=== PATIENT | female | born 1985 | race Caucasian/White ===

== ENCOUNTER → 2016-08-10 | Outpatient (CLI) | payer BC ==
[~2016-08-10] MED LIST: MTR600X PO; NUTR-218 PO; OXYC-57 PO; PRENTAB26 PO
== END | disposition home or self-care (01) ==
LOC: C.LAB1850 15:43
PROVIDERS: ATTEND Obstetrics & Gynecology
DX: O09.00 Supervision of pregnancy with history of infertility, unspecified trimester (principal)

== ENCOUNTER 2016-09-14 15:44 | Emergency (ER) | payer BC, OTHER ==
[~2016-09-14] VITALS: Ht 157.5 cm; Wt 57.6 kg
[~2016-09-14 15:44] MED LIST changes: -MTR600X PO; -OXYC-57 PO; -PRENTAB26 PO
[2016-09-14 15:49] VITALS: TEMP 36.8; Ht 157.5 cm; Wt 57.6 kg
[2016-09-14] MEDS ORDERED: SODIUM CHLORIDE 0.9% 1000ML 1,000 ML IV STA (17:36)
[2016-09-14 17:58] VITALS: O2SAT 100
[2016-09-14] MEDS ORDERED: PRENTAB26 PO (18:14)
[2016-09-14 18:15] LABS: BASO % 0.1 %; BASO ABS # 0.01 K/uL (0-0.2); COMPLETE YES; HEMATOCRIT 35.7 % (37-47); IG% 0.2 %; LYMPH % 25.2 %; LYMPH ABS # 2.07 K/uL (1.2-3.4); MEAN CELL VOLUME 81.9 fL (80-100); MEAN CORPUSCULAR HEMOGLOBIN 29.1 pg (25-34); MEAN CORPUSCULAR HGB CONC 35.6 g/dl (32-36); MEAN PLATELET VOLUME 11.2 fL (7.4-10.4); MONO % 6.1 %; NEUT % 67.4 %; PLATELET COUNT 176 K/uL (130-400); RED BLOOD COUNT 4.36 M/uL (4.2-5.4); WHITE BLOOD COUNT 8.22 K/uL (4.8-10.8)
[2016-09-14 18:31] LABS: ALT/SGPT 17 U/L (12-78); AST/SGOT 9 U/L (15-37); BLOOD UREA NITROGEN 9 mg/dl (7-18); BUN/CREATININE RATIO 18.4 (10-20); CALCIUM 8.6 mg/dl (8.5-10.1); CARBON DIOXIDE 23 mmol/L (21-32); CHLORIDE 105 mmol/L (98-107); CREATININE 0.47 mg/dl (0.60-1.20); GLUCOSE 82 mg/dl (70-99); MAGNESIUM 2.2 mg/dl (1.8-2.4); POTASSIUM 3.8 mmol/L (3.5-5.1); SODIUM 138 mmol/L (136-145)
[2016-09-14 18:42] LABS: ALKALINE PHOSPHATASE 41 U/L (45-117); THYROID STIMULATING HORMONE 0.418 uIu/ml (0.300-4.500)
[2016-09-14] MEDS ORDERED: SODIUM CHLORIDE 0.9% 500ML 500 ML IV STA (19:52)
[2016-09-14 20:32] VITALS: BP 94/56; PULSE 66; O2SAT 100
--- NOTE | 2016-09-14 22:35 | EMERGENCY ROOM VISIT NOTE ---
History First contact with patient: 17:20 Chief Complaint: DEHYDRATION Stated Complaint: 9/10 WKS PREG- PVC'S/DEHYDRATION DUE TO VOMITTING Nursing Triage Summary: 10 weeks , cant keep anything down, vomting. Pt feels like heart is beating out of chest, had PVCs with other 2 pregnancies. History of Present Illness The patient is a 30 year old female who presents to the Emergency Room with complaints of nausea, vomiting, fatigue and dizziness. She also reports intermittent palpitations that have worsened over the past several days. The patient did have a history of PVCs with her prior . The patient reports that she is currently 9 weeks and 4 days . OB history is . The patient has had nausea for the past 6 weeks. She did have some minimal nausea on her first , and worse nausea on her second . She did have a prescription for Zofran ODT, but never really needed her medication on her second . The patient has not tried Zofran on her current . She reports that her SUPERINTENDENT CIRCUS is unable to get her in until her 12 week visit. She tried to call her family doctor as well, and had an appointment scheduled for today, but it was canceled. She called her former SUPERINTENDENT CIRCUS, Dr. Alfredo, who recommended that she come to the emergency department for further evaluation and treatment for probable dehydration. The patient has not had any abdominal/pelvic cramping or vaginal bleeding. She has had no chest pain, shortness of breath, sinus congestion or fever. 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 He does report a family history of thyroid disease, but denies any known personal history of the same. He has not had any urinary symptoms or diarrhea. She currently denies any pain. Review of Systems HEENT: Denies visual problems, hearing loss, tinnitus. Denies difficulty swallowing or oral lesions. PULMONARY: Denies cough, shortness of breath, sputum production or hemoptysis. CARDIOVASCULAR: Denies chest pain, palpitations, dyspnea on exertion, orthopnea or peripheral edema. GASTROINTESTINAL: Denies diarrhea, constipation or abdominal pain. GENITOURINARY: Denies dysuria, frequency, urgency or nocturia. NEUROLOGIC: Denies history of epilepsy, CVA, TIA or chronic headaches. MUSCULOSKELETAL: Denies history of joint tenderness/swelling. SKIN: Denies rashes or lesions. PSYCHIATRIC: Denies history of depression or mental illness. ENDOCRINE: Denies history of diabetes or thyroid disorders. Past Medical/Surgical History Medical Problems: (1) History of endometriosis (2) Palpitations Family History Unremarkable Social History Smoking Status: Never Smoker Alcohol Use: none Marital Status: Housing Status: lives with family Occupation Status: employed Current/Historical Medications Scheduled Multivit/Min/Iron/Fol Ac/Pren ( Vitamin), 1 TAB PO DAILY Nutritional Supplements (Juice Plus Fibre), 1 DOSE PO DIRECTED Allergies Coded Allergies: Sulfa Drugs (Verified Allergy, Intermediate, SWELLING, 09/14/16) Physical Exam Vital Signs Date Time Temp Pulse Resp B/P Pulse Ox O2 Delivery O2 Flow Rate FiO2 09/14/16 20:32 66 18 94/56 100 Room Air 09/14/16 18:58 68 16 100/59 100 Room Air 09/14/16 18:22 63 09/14/16 18:00 93 100/61 99 Room Air 111/62 113/70 09/14/16 17:58 100 Room Air 09/14/16 15:49 36.8 79 18 120/76 99 Room Air Physical Exam CONSTITUTIONAL: Healthy and well nourished. Alert and oriented X 3 with positive affect. Patient does not appear acutely ill or toxic. HEENT: Normocephalic, atraumatic. Pupils equal, round and reactive. Ears and nares are clear. No scleral icterus or conjunctival injection/pallor. OROPHARYNX: Mucous membranes are somewhat dry. No posterior pharyngeal erythema or tonsillar exudates. NECK: Full active range of motion without discomfort. No JVD or carotid bruits. RESPIRATORY: Clear to auscultation bilaterally with no wheezing, crackles, rhonchi or stridor. CARDIOVASCULAR: Regular rate and rhythm with no murmurs, rubs or gallops. GASTROINTESTINAL: Bowel sounds present in all quadrants. Abdomen is soft and nontender to palpation. MUSCULOSKELETAL: Full range of motion of all joints without discomfort. INTEGUMENTARY: No rash or other significant dermatologic conditions noted. NEUROLOGIC: No focal neurologic deficits noted. Medical Decision & Procedures Laboratory Results 09/14/16 17:56 Red Blood Count 4.36, Mean Corpuscular Volume 81.9, Mean Corpuscular Hemoglobin 29.1, Mean Corpuscular Hemoglobin Concent 35.6, Mean Platelet Volume 11.2, Neutrophils (%) (Auto) 67.4, Lymphocytes (%) (Auto) 25.2, Monocytes (%) (Auto) 6.1, Eosinophils (%) (Auto) 1.0, Basophils (%) (Auto) 0.1, Neutrophils # (Auto) 5.54, Lymphocytes # (Auto) 2.07, Monocytes # (Auto) 0.50, Eosinophils # (Auto) 0.08, Basophils # (Auto) 0.01 09/14/16 17:56 Test 09/14/16 17:56 White Blood Count 8.22 K/uL (4.8-10.8) Red Blood Count 4.36 M/uL (4.2-5.4) Hemoglobin 12.7 g/dL (12.0-16.0) Hematocrit 35.7 % (37-47) Mean Corpuscular Volume 81.9 fL (80-100) Mean Corpuscular Hemoglobin 29.1 pg (25-34) Mean Corpuscular Hemoglobin Concent 35.6 g/dl (32-36) Platelet Count 176 K/uL (130-400) Mean Platelet Volume 11.2 fL (7.4-10.4) Neutrophils (%) (Auto) 67.4 % Lymphocytes (%) (Auto) 25.2 % Monocytes (%) (Auto) 6.1 % Eosinophils (%) (Auto) 1.0 % Basophils (%) (Auto) 0.1 % Neutrophils # (Auto) 5.54 K/uL (1.4-6.5) Lymphocytes # (Auto) 2.07 K/uL (1.2-3.4) Monocytes # (Auto) 0.50 K/uL (0.11-0.59) Eosinophils # (Auto) 0.08 K/uL (0-0.5) Basophils # (Auto) 0.01 K/uL (0-0.2) RDW Standard Deviation 38.7 fL (36.4-46.3) RDW Coefficient of Variation 13.0 % (11.5-14.5) Immature Granulocyte % (Auto) 0.2 % Immature Granulocyte # (Auto) 0.02 K/uL (0.00-0.02) Anion Gap 10.0 mmol/L (3-11) Est Creatinine Clear Calc Drug Dose 136.0 ml/min Estimated GFR () > 150.0 Estimated GFR (Non- 130.7 BUN/Creatinine Ratio 18.4 (10-20) Calcium Level 8.6 mg/dl (8.5-10.1) Phosphorus Level 3.0 mg/dl (2.5-4.9) Magnesium Level 2.2 mg/dl (1.8-2.4) Total Bilirubin 0.4 mg/dl (0.2-1) Direct Bilirubin 0.1 mg/dl (0-0.2) Aspartate Amino Transf (AST/SGOT) 9 U/L (15-37) Alanine Aminotransferase (ALT/SGPT) 17 U/L (12-78) Alkaline Phosphatase 41 U/L (45-117) Total Protein 7.3 gm/dl (6.4-8.2) Albumin 3.7 gm/dl (3.4-5.0) Thyroid Stimulating Hormone (TSH) 0.418 uIu/ml (0.300-4.500) The above labs were reviewed, and were grossly normal. Medications Administered Medications (Trade) Dose Ordered Sig/Aleksandar Route Start Time Stop Time Status Last Admin Dose Admin Sodium Chloride 1,000 ml @ 999 mls/hr Q1H1M STAT IV 09/14/16 17:36 09/14/16 18:36 DC 09/14/16 18:02 999 MLS/HR Sodium Chloride (Nss 500ml) 500 ml @ 999 mls/hr Q31M STAT IV 09/14/16 19:52 09/14/16 20:22 DC 09/14/16 19:52 999 MLS/HR Procedure 1. IV hydration: The patient received a 1.5 L normal saline bolus ED Course Patient history and physical exam were performed. Nurse's notes were reviewed. Triage vital signs were reviewed and normal with a blood pressure 120/76, and pulse rate of 79. While speaking with the patient, she reports feeling occasional palpitations. Orthostatic vital signs were also performed and were normal. IV access was established, and labs were drawn. Labs were reviewed and were grossly normal. The patient was hydrated with a 1.5 L normal saline. The patient was placed on backend python developer after initial exam. The patient did have occasional unifocal PVCs. The patient refused any parenteral or oral antiemetics. At the completion of workup, the patient did report feeling better without significant nausea. She actually reports feeling hungry. The patient reports that she will follow-up with Dr. Alfredo. She was encouraged to remain hydrated throughout the day. She was also encouraged to take her home Zofran ODT as needed for nausea. She also reported difficulty sleeping. I did explain that Benadryl can also help with nausea and sleeping. She was instructed to return to the emergency department for any persistent palpitations, chest pain, shortness of breath for uncontrollable vomiting. Otherwise, she will follow-up with her SUPERINTENDENT CIRCUS for further management. The patient was happy with plan of care, and voiced understanding of all discharge instructions. Medical Decision Impression Primary Impression: Nausea, vomiting Additional Impressions: Unifocal PVCs Intrauterine Departure Information Referrals Carmine Carlson M.D. (PCP) Patient Instructions My [facility] Health Problem Qualifiers
[2017-04-11] MEDS ORDERED: OXYC-57 PO (07:35)
[2017-04-11] MEDS ORDERED: MTR600X PO (07:35)
== END 2016-09-14 20:47 | disposition home or self-care (01) ==
LOC: C.EDB 15:46 → C.EDA 20:47
DX: O21.0 Mild hyperemesis gravidarum (principal); O99.411 Diseases of the circulatory system complicating pregnancy, first trimester; I49.3 Ventricular premature depolarization; O26.891 Other specified pregnancy related conditions, first trimester; Z3A.09 9 weeks gestation of pregnancy; Z79.899 Other long term (current) drug therapy

== ENCOUNTER → 2016-09-24 | Outpatient (CLI) | payer BC ==
[~2016-09-24] MED LIST changes: +MTR600X PO; +OXYC-57 PO; +PRENTAB26 PO
[2016-09-29 02:27] LABS: CHLAMYDIA TRACH RNA*** NOT DETECTED (NOT DETECTED); GC (NEIS GONORRHOEAE)RNA** NOT DETECTED (NOT DETECTED)
== END | disposition home or self-care (01) ==
LOC: C.LABSPEC 11:50
PROVIDERS: ATTEND Obstetrics & Gynecology
DX: Z34.93 Encounter for supervision of normal pregnancy, unspecified, third trimester (principal)

== ENCOUNTER → 2016-09-29 | Outpatient (CLI) | payer BC ==
[2016-09-29 17:45] LABS: BASO % 0.2 %; BASO ABS # 0.02 K/uL (0-0.2); COMPLETE YES; EOS % 0.9 %; HEMATOCRIT 34.7 % (37-47); IG% 0.3 %; LYMPH % 24.9 %; LYMPH ABS # 2.25 K/uL (1.2-3.4); MEAN CELL VOLUME 81.5 fL (80-100); MEAN CORPUSCULAR HEMOGLOBIN 29.8 pg (25-34); MEAN CORPUSCULAR HGB CONC 36.6 g/dl (32-36); MEAN PLATELET VOLUME 10.7 fL (7.4-10.4); MONO % 4.6 %; NEUT % 69.1 %; PLATELET COUNT 237 K/uL (130-400); RED BLOOD COUNT 4.26 M/uL (4.2-5.4); WHITE BLOOD COUNT 9.05 K/uL (4.8-10.8)
== END | disposition home or self-care (01) ==
LOC: C.LAB1850 16:49
PROVIDERS: ATTEND Obstetrics & Gynecology
DX: Z34.93 Encounter for supervision of normal pregnancy, unspecified, third trimester (principal)

== ENCOUNTER → 2016-10-27 | Outpatient (CLI) | payer BC ==
[2016-10-27 19:21] LABS: GTGD 50 Grams
== END | disposition home or self-care (01) ==
LOC: C.LAB 17:37
PROVIDERS: ATTEND Obstetrics & Gynecology
DX: O09.01 Supervision of pregnancy with history of infertility, first trimester (principal); Z3A.00 Weeks of gestation of pregnancy not specified

== ENCOUNTER → 2017-01-22 | Outpatient (CLI) | payer BC ==
[2017-01-22 14:42] LABS: HEMATOCRIT 36.4 % (37-47)
[2017-01-22 15:05] LABS: GTGD 50 Grams
== END | disposition home or self-care (01) ==
LOC: C.LAB1850 12:47
PROVIDERS: ATTEND Obstetrics & Gynecology
DX: Z34.83 Encounter for supervision of other normal pregnancy, third trimester (principal)

== ENCOUNTER → 2017-01-22 | Outpatient (CLI) | payer BC ==
[2017-01-22 15:08] LABS: URINE APPEARANCE CLEAR (CLEAR); URINE BILIRUBIN NEG (NEG); URINE COLOR YELLOW; URINE NITRITE NEG (NEG); URINE PH 7.5 (4.5-7.5); URINE SPECIFIC GRAVITY 1.011 (1.000-1.030); UROBILINOGEN NEG (NEG)
[2017-01-22 15:16] LABS: MANUAL MICROSCOPIC REQUIRED? NO; REVIEW REQ? NO
== END | disposition home or self-care (01) ==
LOC: C.LABSPEC 13:55
PROVIDERS: ATTEND Obstetrics & Gynecology
DX: Z34.83 Encounter for supervision of other normal pregnancy, third trimester (principal)

== ENCOUNTER → 2017-03-26 | Outpatient (CLI) | payer BC | END | disposition home or self-care (01) | LOC: C.LABSPEC 08:39 | PROVIDERS: ATTEND Obstetrics & Gynecology | DX: Z34.83 Encounter for supervision of other normal pregnancy, third trimester (principal) ==

== ENCOUNTER 2017-04-08 05:37 | Inpatient (IN) | payer BC ==
--- NOTE | 2017-04-01 12:13 | PAT Medication Instructions ---
Service Date Apr 01, 2017. Current Home Medication List Multivit/Min/Iron/Fol Ac/Pren ( Vitamin), 1 TAB PO DAILY Nutritional Supplements (Juice Plus Fibre), 1 DOSE PO DIRECTED Medication Instructions For Your Scheduled Surgery - Hold the following medications the morning of surgery: Multivit/Min/Iron/Fol Ac/Pren ( Vitamin), 1 TAB PO DAILY Nutritional Supplements (Juice Plus Fibre), 1 DOSE PO DIRECTED - Take the following medications as scheduled the night before surgery: Nutritional Supplements (Juice Plus Fibre), 1 DOSE PO DIRECTED *NOTHING TO EAT OR DRINK AFTER MIDNIGHT* If you have any questions please call us at [phone] or [phone] or [phone]
[2017-04-01 13:01] LABS: BASO % 0.2 %; BASO ABS # 0.02 K/uL (0-0.2); COMPLETE YES; EOS % 0.6 %; HEMATOCRIT 33.9 % (37-47); IG% 1.9 %; LARGE PLATELETS 2+; LYMPH % 20.1 %; LYMPH ABS # 1.77 K/uL (1.2-3.4); MEAN CELL VOLUME 85.6 fL (80-100); MEAN CORPUSCULAR HEMOGLOBIN 29.8 pg (25-34); MEAN CORPUSCULAR HGB CONC 34.8 g/dl (32-36); MONO % 6.3 %; NEUT % 70.9 %; PLATELET COUNT 116 K/uL (130-400); PLT ESTIMATE NORMAL; RED BLOOD COUNT 3.96 M/uL (4.2-5.4); WHITE BLOOD COUNT 8.79 K/uL (4.8-10.8)
--- NOTE | 2017-04-01 14:27 | HISTORY & PHYSICAL EXAMINATION ---
DATE OF ADMISSION: 04/08/2017 ADMITTING DIAGNOSES: 1. Term . 2. Previous section x2. ADMISSION HISTORY: The patient is a 31-year-old 3, para 2 with an EDC of April 15 by dates and first trimester ultrasound, who is admitted at 39 weeks gestational age for a repeat section. The patient has had 2 previous sections and as such has been scheduled for this procedure. The patient has had a benign course. Laboratory values show a blood type of O negative, antibody negative. She received RhoGAM on the 22 of January. She is hepatitis B negative, rubella immune. She had a normal 1-hour Glucola x2 and a negative third trimester beta strep culture. PAST MEDICAL HISTORY: OBSTETRICAL: section x2. GYNECOLOGICAL: Endometriosis with diagnostic laparoscopy for endometrioma. MEDICAL: PVCs. SURGICAL: Skin graft, roof of the mouth. ALLERGIES: SULFA. SOCIAL HISTORY: No smoking. FAMILY HISTORY: Noncontributory. REVIEW OF SYSTEMS: As per HPI. ADMISSION PHYSICAL EXAMINATION: GENERAL: Shows a gravid female in no acute distress. VITAL SIGNS: Blood pressure 120/74 and a weight of 158 pounds. HEENT EXAMINATION: Unremarkable. NECK: Supple. LUNGS: Clear. HEART: With a regular rhythm and rate. ABDOMEN: Gravid, vertex, positive heart tones, estimated weight of 7-1/2 pounds. PELVIC: Deferred. EXTREMITIES: Exam shows no deep calf tenderness. NEUROLOGIC: Grossly intact. IMPRESSION: A 31-year-old 3, para 2 at 39 weeks gestational age for repeat section. PLAN: The risks, benefits and alternatives to the surgery have been discussed. While the benefits will be delivery of the infant, the risks are bleeding, infection, inadvertent injury to bowel or bladder, readmission or reoperation. The patient understands the above. Permit has been signed and she wishes to proceed.
[~2017-04-08] VITALS: Ht 154.9 cm; Wt 69.0 kg
[2017-04-08] VITALS (11 sets, daily range): BP systolic 90–98; BP diastolic 51–63; PULSE 72–77; TEMP 36.3–37.2; O2SAT 96–99; Ht 154.9 cm; Wt 69.0 kg
[~2017-04-08 05:37] MED LIST changes: -MTR600X PO; -OXYC-57 PO
[2017-04-08] MEDS ORDERED: CEFAZOLIN IV 2,000 MG in DEXTROSE 5% 50ML IV SCH (06:00)
[2017-04-08] MEDS ORDERED: CITRIC ACID/SODIUM CITRATE 15 ML UDC PO SCH (06:00)
[2017-04-08] MEDS: LACTATED RINGER'S 1000ML 1,000 ML IV SCH ×2 (06:11→07:11)
[2017-04-08] MEDS ORDERED: EpHEDrine SULFATE INJ 50 MG/ML AMP ONE (06:15)
[2017-04-08] MEDS ORDERED: PHENYLEPHRINE HCL INJ 10 MG/ML VIAL ONE (06:15)
[2017-04-08] MEDS ORDERED: OXYTOCIN INJ 10 UNITS/ML VIAL ONE (06:15)
[2017-04-08] MEDS ORDERED: SODIUM CHLORIDE 0.9% INJ 10 ML VIAL ONE (06:18)
[2017-04-08 06:24] LABS: BASO % 0.2 %; BASO ABS # 0.02 K/uL (0-0.2); EOS % 0.3 %; HEMATOCRIT 35.4 % (37-47); IG% 1.4 %; LYMPH % 26.5 %; LYMPH ABS # 2.53 K/uL (1.2-3.4); MEAN CELL VOLUME 85.9 fL (80-100); MEAN CORPUSCULAR HEMOGLOBIN 27.7 pg (25-34); MEAN PLATELET VOLUME 11.6 fL (7.4-10.4); MONO % 7.3 %; NEUT % 64.3 %; PLATELET COUNT 125 K/uL (130-400); RED BLOOD COUNT 4.12 M/uL (4.2-5.4); WHITE BLOOD COUNT 9.55 K/uL (4.8-10.8)
[2017-04-08 06:39] LABS: COMPLETE YES; MEAN CORPUSCULAR HGB CONC 32.2 g/dl (32-36)
[2017-04-08] MEDS ORDERED: MoRPHine SULFATE PF 1 MG/ML 10 ML AMP/VIAL ONE (06:43)
[2017-04-08] MEDS ORDERED: FENTANYL CITRATE INJ 50 MCG/1 ML 2 ML VIAL ONE (06:43)
[2017-04-08] MEDS ORDERED: DiphenhydrAMINE HCL 50 MG/ML VIAL IV PRN ×2 (07:00→08:45)
[2017-04-08] MEDS ORDERED: KETOROLAC TROMETHAMINE 30 MG/ML VIAL IV. PRN (07:00)
[2017-04-08] MEDS ORDERED: EpHEDrine SULFATE INJ 50 MG/ML AMP IV PRN ×2 (07:00→08:45)
[2017-04-08] MEDS ORDERED: PROMETHAZINE HCL INJ 12.5 MG in SODIUM CHLORIDE 0.9% 50ML 50 ML IV PRN ×2 (07:00→08:45)
[2017-04-08] MEDS ORDERED: ATROPINE SULFATE 0.1 MG/ML 5ML SYR IV PRN (07:00)
[2017-04-08] MEDS ORDERED: DEXAMETHASONE SOD INJ 4 MG/ML VIAL IV PRN (07:00)
[2017-04-08] MEDS ORDERED: ONDANSETRON INJ 2 MG/ML 2 ML VIAL IV PRN ×2 (07:00→08:45)
[2017-04-08] MEDS ORDERED: ACETAMINOPHEN 1000 MG/100 ML IV IV ONE (07:00)
--- NOTE | 2017-04-08 07:12 | History & Physical Bridge Note ---
H&P Re-Evaluation Bridge Note: I have examined the patient, reviewed the History & Physical and in the interval since the performance of the History & Physical I have noted the following changes of clinical significance: No changes noted
[2017-04-08] MEDS ORDERED: ONDANSETRON INJ 2 MG/ML 2 ML VIAL ONE (08:14)
[2017-04-08] MEDS ORDERED: SUPERCREAM 0.870 % 15GM JAR EXT PRN (08:30)
[2017-04-08] MEDS ORDERED: LANOLIN OINT EXT PRN ×2 (08:30)
[2017-04-08] MEDS ORDERED: DIPHTHERIA/TETANUS/PERTUSSIS 0.5 ML SYR/VIAL IM. ONE (08:30)
[2017-04-08] MEDS ORDERED: HYDROCORTISONE ACETATE 25 MG SUPP PR PRN (08:30)
[2017-04-08] MEDS ORDERED: BENZOCAINE 20% AER SPR 82.5 GM CAN EXT PRN (08:30)
[2017-04-08] MEDS ORDERED: LACTATED RINGER'S 1000ML 500 ML IV PRN (08:40)
[2017-04-08] MEDS ORDERED: NALOXONE HCL INJ 0.08 MG in SYRINGE 1.8 ML IV PRN (08:40)
[2017-04-08] MEDS ORDERED: SODIUM CHLORIDE 0.9% 1000ML 1,000 ML IV PRN (08:40)
[2017-04-08] MEDS ORDERED: NALOXONE HCL INJ 1 MG in SODIUM CHLORIDE 0.9% 1000ML 1,000 ML IV PRN ×4 (08:40)
--- NOTE | 2017-04-08 08:40 | [facility] Post Operative Brief Note ---
Immediate Operative Summary Operative Date Apr 08, 2017. (Yu Sheppard M.D.) Pre-Operative Diagnosis 1. Term . 2. Previous cesarian sections x2. 3. Pt desires repeat . (Yu Sheppard M.D.) 1 ) Term Prenancy 2) Previous C/S X2 (Ramirez Egan M.D.) Post-Operative Diagnosis Same as pre-op. (Yu Sheppard M.D.) same (Ramirez Egan M.D.) Procedure(s) Performed Live male at 0751 (Yu Sheppard M.D.) 1) Repeat LCT C/S 2) lysis of adhesions (Ramirez Egan M.D.) Surgeon Dr. Egan (Yu Sheppard M.D.) Jignesh (Ramirez Egan M.D.) Wire Spring Relay Adjuster Surgeon(s) Dr. Donohue (Yu Sheppard M.D.) Charanjit (Ramirez Egan M.D.) Estimated Blood Loss 600 ML (Yu Sheppard M.D.) 600 (Ramirez Egan M.D.) Findings Viable male . Apgars 9/9. Weight 8#2. Normal appearing uterus, tubes, ovaries. Small omental adhesions to posterior uterus. (Yu Sheppard M.D.) Viavle male infant, Apgars 8/9, art/venous gasses pending; normal adnexa, adhesions of omentum to posterior uterus lysed (Ramirez Egan M.D.) Fluids (cc crystalloids) 1200 (Ramirez Egan M.D.) Specimens Placenta (Exam) Cord Blood Cord Gases (Yu Sheppard M.D.) 1) Placenta (Ramirez Egan M.D.) Drains zaragoza, clear yellow (Yu Sheppard M.D.) Zaragoza to gravity (Ramirez Egan M.D.) Anesthesia spinal (Yu Sheppard M.D.) Spinal (Ramirez Egan M.D.) Complication(s) None (Yu Sheppard M.D.) None (Ramirez Egan M.D.) Disposition L&D (Yu Sheppard M.D.) L&D (Ramirez Egan M.D.) Resident Tracking Resident Involvement: Resident Care Provided Care Provided: OB Delivery (Yu Sheppard M.D.)
[2017-04-08] MEDS ORDERED: MoRPHine SULFATE 2 MG/ML CARP IV PRN (08:45)
[2017-04-08] MEDS ORDERED: DC INTRASPINAL MORPHINE SCH (08:45)
[2017-04-08] MEDS ORDERED: NALOXONE HCL 0.4 MG/1 ML VIAL/CARP IV PRN (08:45)
[2017-04-08] MEDS ORDERED: MoRPHine SULFATE PF 1 MG/ML 10 ML AMP/VIAL EPI PRN (08:45)
[2017-04-08] MEDS ORDERED: METOCLOPRAMIDE HCL INJ 20 MG in SODIUM CHLORIDE 0.9% 50ML 50 ML IV PRN (08:45)
[2017-04-08] MEDS ORDERED: NALBUPHINE HCL INJ 10 MG/ML AMP IV PRN (08:45)
[2017-04-08] MEDS ORDERED: NO NARCOTICS OR SEDATIVES SCH (08:45)
[2017-04-08] MEDS ORDERED: MEPERIDINE HCL 25 MG/ML CARP IV PRN (08:45)
[2017-04-08] MEDS: OXYTOCIN INJ 20 UNITS in LACTATED RINGER'S 1000ML 1,000 ML IV SCH ×2 (08:46→17:22)
--- NOTE | 2017-04-08 09:49 | OPERATIVE REPORT ---
DATE OF OPERATION: 04/08/2017 PREOPERATIVE DIAGNOSES: 1. Term . 2. Previous section x2. POSTOPERATIVE DIAGNOSES: 1. Same. 2. Pelvic adhesions. PROCEDURES PERFORMED: 1. Repeat low cervical transverse section. 2. Lysis of adhesions. SURGEON: Dr. Egan. SENIOR COLDFUSION DEVELOPER: Dr. Donohue. ANESTHESIA: Spinal. FINDINGS: Viable male with Apgars of 8 and 9. Arterial and venous cord gases pending. Grossly normal adnexa bilaterally. Adhesions of the omentum to the posterior surface of the uterus which were lysed. PROCEDURE IN DETAIL: The patient was taken to the operating room and after spinal anesthesia was placed in the supine position and draped and prepped in the usual fashion. Pfannenstiel type incision through previous surgical scar was made. Underlying subcutaneous tissue was dissected down to the ventral abdominal fascia, which was nicked and opened in a horizontal manner. Preperitoneal fascia was dissected away until the peritoneal cavity was entered and opened in a vertical manner. Bladder blade was placed. The peritoneum overlying the uterus was elevated, opened in a semi-lunar fashion, the inferior margin of which was taken down creating the bladder flap. The lower uterine segment was noted to be thin with transparency. The uterus was entered sharply and extended in a semi-lunar fashion manually. Viable male was delivered. Cord was clamped and cut and the baby was passed off to pediatrics who was in attendance for the delivery. Cord gases, cord blood samples obtained. Placenta delivered spontaneously and the uterus was exteriorized. The uterine cavity was wiped clean of any residual blood tissue and/or clot. The uterine incision was closed with 2 layers of 4-0 Vicryl, the first a running locking stitch, the second an imbricating stitch. Inspection of the uterus showed adhesions of the omentum to the posterior surface of the uterus. There was a window in the omentum and as such the adhesion was taken down with cautery. Hemostasis was present. Inspection of the uterine incision was again dry and the uterus was returned to the pelvic cavity. Pericolic gutters were cleared bilaterally of any blood tissue and/or clot. The pelvis was thoroughly irrigated with 1000 mL of warm saline. The incision was inspected for hemostasis again which was present. Sponge and needle count was correct. The rectus muscle was then plicated in the midline with a running 2-0 Vicryl stitch. The fascia was closed laterally with a running 0 Vicryl suture. Subcutaneous tissue was irrigated with warm saline and the skin incision was closed with a 4-0 Monocryl subcuticular suture. Sterile dressing was applied and the patient was taken to the recovery room in satisfactory condition. I attest to the content of the Intraoperative Record and any orders documented therein. Any exception s are noted below.
--- NOTE | 2017-04-08 10:57 | Anesthesiology Progress Note ---
Anesthesia Post Op Note Date & Time Apr 08, 2017 at 10:56 Notes Mental Status: alert / awake / arousable, participated in evaluation Pt Amnestic to Procedure: Yes Nausea / Vomiting: adequately controlled Pain: adequately controlled Airway Patency, RR, SpO2: stable & adequate BP & HR: stable & adequate Hydration State: stable & adequate Neuraxial Anesthesia: was administered, sensory block is resolving Anesthetic Complications: no major complications apparent
[2017-04-08] MEDS: KETOROLAC TROMETHAMINE 30 MG/ML VIAL IV. PRN ×2 (11:07→20:33)
[2017-04-09] VITALS (9 sets, daily range): BP systolic 84–93; BP diastolic 52–58; PULSE 67–86; TEMP 36.4–36.9; O2SAT 98–99
[2017-04-09] MEDS: OXYTOCIN INJ 20 UNITS in LACTATED RINGER'S 1000ML 1,000 ML IV SCH (01:03)
[2017-04-09] MEDS ORDERED: DiphenhydrAMINE HCL 50 MG/ML VIAL IV PRN (01:30)
[2017-04-09] MEDS ORDERED: KETOROLAC TROMETHAMINE 30 MG/ML VIAL IV. PRN (01:30)
[2017-04-09] MEDS ORDERED: ONDANSETRON INJ 2 MG/ML 2 ML VIAL IV PRN (01:30)
[2017-04-09] MEDS ORDERED: OXYCODONE/ACETAMINOPHEN 5-325 TAB PO PRN (01:30)
[2017-04-09 06:11] LABS: BASO % 0.1 %; BASO ABS # 0.01 K/uL (0-0.2); EOS % 0.7 %; HEMATOCRIT 27.4 % (37-47); IG% 0.6 %; LYMPH ABS # 1.19 K/uL (1.2-3.4); MEAN CELL VOLUME 85.9 fL (80-100); MEAN CORPUSCULAR HEMOGLOBIN 27.9 pg (25-34); MEAN CORPUSCULAR HGB CONC 32.5 g/dl (32-36); MEAN PLATELET VOLUME 11.9 fL (7.4-10.4); MONO % 8.7 %; NEUT % 78.9 %; PLATELET COUNT 107 K/uL (130-400); RED BLOOD COUNT 3.19 M/uL (4.2-5.4); WHITE BLOOD COUNT 10.77 K/uL (4.8-10.8)
--- NOTE | 2017-04-09 07:40 | OB/GYN Progress Note ---
INFORMATICS MANAGER Progress Note Date of Service Apr 09, 2017. Subjective conversation w/ patient, physical exam, chart review, lab review Ambulation: limited ambulation Voiding: voiding difficulty (pt zaragoza removed at 0430. Will follow for urination) Passing Gas: Yes Diet Tolerance: Regular Diet Lochia: Moderate Feeding Type: Breast Feeding Pain: controlled Review of Systems Respiratory: No shortness of breath Cardiac: No chest pain Abdomen: No nausea, No vomiting Objective Vital Signs Date Time Temp Pulse Resp B/P (MAP) Pulse Ox O2 Delivery O2 Flow Rate FiO2 04/09/17 05:00 36.9 81 18 85/52 (63) Room Air 04/09/17 02:00 18 98 04/09/17 01:00 20 99 04/09/17 00:30 99 Room Air 04/09/17 00:30 36.4 80 20 93/56 (68) 98 Room Air 04/09/17 00:00 20 99 04/08/17 23:00 20 99 04/08/17 22:00 18 99 04/08/17 21:00 18 99 04/08/17 20:30 37.2 77 20 90/54 (66) 97 Room Air 04/08/17 20:00 18 98 04/08/17 19:00 20 97 04/08/17 18:00 18 99 04/08/17 17:00 18 98 04/08/17 16:00 16 97 04/08/17 15:00 18 98 04/08/17 15:00 98 Room Air 04/08/17 15:00 36.3 73 16 98/63 (75) 98 Room Air 73 04/08/17 14:00 Room Air 04/08/17 14:00 20 96 04/08/17 14:00 96 Room Air 04/08/17 14:00 36.7 72 20 95/51 (66) 96 Room Air Physical Exam General Appearance: WELL-APPEARING, WD/WN, NO APPARENT DISTRESS Respiratory/Chest: lungs clear, no respiratory distress Cardiovascular: regular rate, rhythm, no JVD Abdomen: normal bowel sounds, soft Fundus: Firm, Tender (appropriately tender uterus), Relation to Umbilicus (1 below U) Incision Description: Clean, Dry & Intact Extremities: non-tender, no calf tenderness Laboratory Results Last 24 Hours Test 04/09/17 05:46 White Blood Count 10.77 K/uL Red Blood Count 3.19 M/uL Hemoglobin 8.9 g/dL Hematocrit 27.4 % Mean Corpuscular Volume 85.9 fL Mean Corpuscular Hemoglobin 27.9 pg Mean Corpuscular Hemoglobin Concent 32.5 g/dl Platelet Count 107 K/uL Mean Platelet Volume 11.9 fL Neutrophils (%) (Auto) 78.9 % Lymphocytes (%) (Auto) 11.0 % Monocytes (%) (Auto) 8.7 % Eosinophils (%) (Auto) 0.7 % Basophils (%) (Auto) 0.1 % Neutrophils # (Auto) 8.48 K/uL Lymphocytes # (Auto) 1.19 K/uL Monocytes # (Auto) 0.94 K/uL Eosinophils # (Auto) 0.08 K/uL Basophils # (Auto) 0.01 K/uL RDW Standard Deviation 44.0 fL RDW Coefficient of Variation 13.9 % Immature Granulocyte % (Auto) 0.6 % Immature Granulocyte # (Auto) 0.07 K/uL Assessment and Plan Post-Op Day Number: 1 Continue Routine Care: - Vital Signs reviewed and WNL except for BP: today 0500 85/52. Pt's baseline is 90s/50s. Will follow for clinical signs of hypotension. - Hemoglobin Reviewed. 8.9 today. - Blood Type: O-, GBS-, Rubella Immune. AntiD profile ordered. - Pt is doing well clinically. - Encourage Ambulation, Monitor and Control pain with Motrin PRN, Resume regular diet, Monitor Lochia - Encourage Breast Feeding. SUZY SHEPPARD PGY1 FMR Resident Physician Supervision Note: I interviewed and examined the patient. Discussed with Dr. Sheppard and agree with findings and plan as documented in the note. Any exceptions or clarifications are listed here: Routine PPD1 care. Documented By: Adriane Collins Resident Tracking Resident Involvement: Resident Care Provided Care Provided: OB Delivery
[2017-04-09 08:16] LABS: COMPLETE YES
[2017-04-09] MEDS: PRENATAL VITAMIN TAB PO SCH (08:25)
[2017-04-09] MEDS: FERROUS SULFATE 325 MG TAB PO SCH (08:25)
[2017-04-09] MEDS: OXYCODONE/ACETAMINOPHEN 5-325 TAB PO PRN ×4 (08:30→21:56)
[2017-04-09] MEDS: IBUPROFEN 600 MG TAB PO PRN ×3 (12:28→21:56)
[2017-04-09] MEDS: MAGNESIUM HYDROXIDE SUSP 30 ML UDC PO SCH (21:51)
[2017-04-09] MEDS: SENNA 8.6 MG TAB PO SCH (21:51)
[2017-04-10] MEDS: OXYCODONE/ACETAMINOPHEN 5-325 TAB PO PRN ×5 (03:33→23:10)
[2017-04-10] MEDS: IBUPROFEN 600 MG TAB PO PRN ×5 (03:33→23:09)
[2017-04-10 06:35] LABS: HEMATOCRIT 28.6 % (37-47)
--- NOTE | 2017-04-10 06:37 | OB/GYN Progress Note ---
ARCHITECTURE TECHNICIAN Progress Note Date of Service Apr 10, 2017. Subjective conversation w/ patient, physical exam, chart review, lab review Ambulation: ambulating normally Voiding: no voiding problems Passing Gas: Yes Diet Tolerance: Regular Diet Lochia: Moderate Feeding Type: Breast Feeding Pain: controlled Review of Systems Respiratory: No shortness of breath Cardiac: No chest pain Abdomen: No nausea, No vomiting Female : No dysuria Objective Vital Signs Date Time Temp Pulse Resp B/P (MAP) Pulse Ox O2 Delivery O2 Flow Rate FiO2 04/09/17 23:35 Room Air 04/09/17 23:35 36.8 82 16 90/58 (69) 98 Room Air 04/09/17 15:35 Room Air 04/09/17 15:35 36.7 81 18 90/58 (69) Room Air 04/09/17 11:55 36.7 86 18 87/56 (66) Room Air 04/09/17 08:30 Room Air 04/09/17 08:00 36.6 67 18 84/54 (64) Room Air Physical Exam General Appearance: WELL-APPEARING, WD/WN, NO APPARENT DISTRESS Respiratory/Chest: lungs clear, no respiratory distress Cardiovascular: regular rate, rhythm Abdomen: normal bowel sounds, soft, + distended (appropriately distended. ) Fundus: Firm, Tender (appropriately tender uterus), Relation to Umbilicus (1 below U) Incision Description: Clean, Dry & Intact Extremities: no calf tenderness Laboratory Results Last 24 Hours Test 04/10/17 06:19 Assessment and Plan Post-Op Day Number: 2 Continue Routine Care: - Vital Signs reviewed and WNL - Hemoglobin pending - Blood Type: O-, GBS-, Rubella Immune. - Baby is B+. Rhogam given. - Pt is doing well clinically. - Encourage Ambulation, Monitor and Control pain with Motrin PRN, Resume regular diet, Monitor Lochia - Encourage Breast Feeding. - Routine post op day 2 care. - Ordered colace and mylicon to assist with gas and constipation. SUZY CLARK PGY1 FMR Resident Tracking Resident Involvement: Resident Care Provided Care Provided: OB Delivery
--- NOTE | 2017-04-10 07:05 | Discharge Instructions ---
Discharge Instructions Date of Service Apr 10, 2017. Admission Reason for Admission: Previous Section Discharge Discharge Diagnosis / Problem: Delivery Discharge Goals Goal(s): Routine recovery after Medications Continue Dispensed Medications: supercream, dermaplast, tucks, lansinoh Activity Recommendations Activity Limitations: per Instructions/Follow-up section . Instructions / Follow-Up Instructions / Follow-Up ACTIVITY RECOMMENDATIONS: * Gradual return to full activity over the next 2-3 weeks. * No lifting - nothing heavier than baby over the next 2-3 weeks. * Do not engage in vigorous exercise, sexual activity or sports until cleared by your physician. * Do not drive or operate any motorized equipment until cleared by your physician. * You may shower/bathe daily. MEDICATIONS: For discomfort or pain, you may use Acetaminophen (Tylenol), Ibuprofen (Advil), or Naproxen (Aleve) following the package directions. For constipation you may use Colace following the package directions. BREAST CARE: If you are not breast feeding: * Wear a supportive bra 24 hours a day for one to two weeks. * Avoid stimulating your breasts and nipples as much as possible during the first few weeks after delivery. * When taking a shower, have the warm water hit your back, not breasts. * When your breasts feel full, apply ice packs. Usually three to four times a day helps ease the discomfort. * Take a mild pain medication (Tylenol / Motrin) when you are uncomfortable. If breast feeding: * Use breast milk to lubricate nipples. Lansinoh cream may be used for sore nipples. You do not need to remove cream prior to breast feeding. If using a different brand of cream, check the label for directions regarding removal of cream prior to nursing. * Wear a supportive bra. * If having problems with breasts or breast feeding, call a digital media sales consultant or your health care provider. SPECIAL CARE INSTRUCTIONS: When you are discharged from the hospital, it is important for you to follow the instructions listed below: * During the first week at home, you should be able to care for yourself and your baby. In addition, the usual light household activities are encouraged. * Limit your activities to the way you feel. Do not try to clean the house or move furniture. Be sensible. * If you actively engage in sports and have done so up until the time of your delivery, you may resume these activities as soon as you feel able. This may take up to one month or even longer. Use good judgment. * Continue to take your vitamins for at least six weeks after the of your baby. * Your diet need not be limited unless you were on a special diet before your delivery. Breast-feeding mothers need around 2500 calories per day and at least 64-80 ounces of fluid per day (8 to 10 glasses). * You should eat foods from the four major food groups. Crash diets or fad diets are to be avoided. Eating lean meats, fresh fruits and vegetables, low-fat dairy products, high fiber foods and a regular exercise program, will help you get back to your pre- weight without putting your health at risk. * Constipation is sometimes a problem after delivery. Take a mild laxative as needed. If breast feeding, Milk of Magnesia is acceptable to use. You may use a suppository or Fleets enema. * A daily shower or tub bath is suggested. Wash incision daily with warm soapy water and pat dry. It doesn't need to be covered unless drainage is present. * A bloody vaginal discharge will usually continue until around four weeks . A small amount of bleeding may continue for as long as six weeks. Vaginal discharge changes from the bright red bleeding after delivery to pink then brownish and finally yellowish-pink before becoming white and disappearing. * Bleeding may increase with activity. Your first period may come in 4-8 weeks. If you are breast feeding, your period may be delayed even longer. * [place] (sex) can begin whenever both you and your partner feel comfortable and do not have any form of genital infection. It is recommended that you wait at least six weeks for internal and external healing to occur. If you have questions, please talk to your health care practitioner. A condom should be used to prevent infection and . * Foreplay, gentle intercourse and lubrication is very important the first several times to prevent pain. A water-based lubricant such as K-Y jelly or Astroglide may be used. * If you have RH negative blood and your baby is RH positive, you will receive RHOGAM by injection prior to discharge. The nurse will give you a card to keep with you that has the date and place that you received RHOGAM after delivery. * During your care, you had a Rubella screen done to check for the presence of rubella antibodies in your blood. If your test was negative, you will receive a Rubella vaccine prior to discharge. This vaccine may cause a fever, soreness at the injection site and flu-like symptoms. If these symptoms persist, notify your health care practitioner. is not advised for one month after a Rubella vaccine. * Verbalizes understanding of car seat law as reviewed with patient nursing. * Car Seat hand-out given and reviewed with patient by nursing. * Shaken baby information reviewed with patient by nursing. Call you doctor if: * Heavy bleeding (saturating several pads an hour) or passing clots the size of your fist. * A fever >101 degrees F (38.3 degrees C) on two occasions four hours apart and /or chills. * Unusual pain in the pelvic or vaginal areas. * Call the doctor for any increased redness, drainage or swelling around the incision and any pain unrelieved by prescribed pain medication. * "Baby Blues" lasting longer than two weeks. If you have any questions or concerns, call your health care practitioner at . FOLLOW UP VISIT: * Please call the office at to schedule a 6 week examination. It is important you keep this appointment. It is important for you to make arrangements for either yearly or twice yearly check-ups thereafter. Current Hospital Diet Patient's current hospital diet: Regular OB Diet Discharge Diet Recommended Diet: Regular Diet Procedures Procedures Performed: 1) Repeat LCT C/S 2) lysis of adhesions Pending Studies Studies pending at discharge: no Medical Emergencies . Who to Call and When: Medical Emergencies: If at any time you feel your situation is an emergency, please call [phone] immediately. . Non-Emergent Contact Non-Emergency issues call your: Primary Care Provider . . "Provider Documentation" section prepared by Yu Sheppard. . VTE Core Measure Inpt VTE Proph given/why not?: SCD's Resident Tracking Resident Involvement: Resident Care Provided Care Provided: OB Delivery
[2017-04-10] MEDS: DOCUSATE SODIUM 100 MG CAP PO SCH ×2 (08:05→19:46)
[2017-04-10] MEDS: FERROUS SULFATE 325 MG TAB PO SCH (08:05)
[2017-04-10] MEDS: PRENATAL VITAMIN TAB PO SCH (08:05)
[2017-04-10] MEDS: SIMETHICONE 80 MG CHEW PO PRN ×3 (08:05→19:46)
[2017-04-10 08:20] VITALS: BP 85/54; PULSE 72; TEMP 36.6; O2SAT 98
[2017-04-10 16:30] VITALS: BP 98/65; PULSE 81; TEMP 36.6; O2SAT 98
[2017-04-10] MEDS: SENNA 8.6 MG TAB PO SCH (19:46)
[2017-04-10] MEDS: MAGNESIUM HYDROXIDE SUSP 30 ML UDC PO SCH (19:50)
[2017-04-10 22:50] VITALS: BP 101/69; PULSE 77; TEMP 37; O2SAT 98
[2017-04-11] MEDS: OXYCODONE/ACETAMINOPHEN 5-325 TAB PO PRN ×3 (03:23→12:34)
[2017-04-11] MEDS: IBUPROFEN 600 MG TAB PO PRN ×3 (03:24→12:34)
[2017-04-11 07:30] VITALS: BP 91/59; PULSE 57; TEMP 36.6
--- NOTE | 2017-04-11 07:34 | Progress Note ---
Subjective Apr 11, 2017. Subjective conversation w/ patient, physical exam Ambulation: ambulating normally Voiding: no voiding problems Feeding Type: Breast Feeding Objective Vital Signs Date Time Temp Pulse Resp B/P (MAP) Pulse Ox O2 Delivery O2 Flow Rate FiO2 04/10/17 22:50 37.0 77 16 101/69 (80) 98 Room Air 04/10/17 22:50 Room Air 04/10/17 16:30 98 Room Air 04/10/17 16:30 36.6 81 16 98/65 (76) 98 Room Air 04/10/17 08:20 36.6 72 18 85/54 (64) 98 Room Air 04/10/17 08:20 98 Room Air Physical Exam General Appearance: WELL-APPEARING, NO APPARENT DISTRESS Respiratory/Chest: lungs clear Cardiovascular: regular rate, rhythm Incision Description: Clean, Dry & Intact Extremities: no calf tenderness Assessment and Plan Problem List Medical Problems: (1) Abdominal pain, left lower quadrant Status: Acute (2) Dehydration Status: Acute (3) Nausea and vomiting Status: Acute (4) Unifocal PVCs Status: Acute Post-Op Day#: 3 Continue Routine Care: - doing well - desires d/c - instructions/Rx given - f/u om 2 weeks for incision check
[2017-04-11] MEDS ORDERED: MTR600X PO (07:35)
[2017-04-11] MEDS ORDERED: OXYC-57 PO (07:35)
[2017-04-11] MEDS: SIMETHICONE 80 MG CHEW PO PRN (07:41)
[2017-04-11] MEDS: FERROUS SULFATE 325 MG TAB PO SCH (07:41)
[2017-04-11] MEDS: PRENATAL VITAMIN TAB PO SCH (07:41)
[2017-04-11] MEDS: DOCUSATE SODIUM 100 MG CAP PO SCH (08:00)
[2017-04-11 11:19] VITALS: BP_DIAS 59; PULSE 57; TEMP 36.6
--- NOTE | 2017-04-11 23:26 | DISCHARGE SUMMARY ---
NARRATIVE DISCHARGE SUMMARY ADMITTING DIAGNOSES: 1. Term . 2. Previous section x2. DISCHARGE DIAGNOSES: Same. PROCEDURES PERFORMED: Repeat low cervical transverse section. DISCHARGE MEDICATIONS: 1. Percocet 5/325 1-2 p.o. q. 4-6 hours p.r.n. pain. 2. Motrin 600 mg p.o. q. 6 hours p.r.n. pain. ADMISSION HISTORY: The patient is a 31-year-old 3, para 2 with an EDC of 15 April by dates and first trimester ultrasound who is admitted at 39 weeks gestational age for repeat section. The patient had 2 previous sections and as such been scheduled for this procedure. The patient has had a benign course. Laboratory values show a blood type of O negative, antibody negative. She received RhoGAM on the 22 of January. She is hepatitis B negative, rubella immune. She had a normal 1 hour Glucola x2 and a negative third trimester beta strep culture. PHYSICAL EXAMINATION: GENERAL: Admission physical shows a gravid female in no acute distress. VITAL SIGNS: Blood pressure 120/74, weight of 158 pounds. HEENT: Unremarkable. NECK: Supple. LUNGS: Clear. HEART: With a regular rhythm and rate. ABDOMEN: Gravid, vertex, positive heart tones, estimated weight of 7.5 pounds. PELVIC: Deferred. EXTREMITIES: Showed no deep calf tenderness. NEUROLOGIC: Grossly intact. ADMISSION LABORATORY VALUES: Showed an H&H of 11.4 and 34.9. HOSPITAL COURSE: On day of admission, patient was taken to the operating room where she underwent the above-listed procedures. Operative findings showed a viable male infant with Apgars of 8 and 9. Normal appearing adnexa bilaterally. Adhesions of the omentum to the posterior surface of the uterus were lysed. Postoperatively, the patient did well. Mcgregor catheter was removed on the first postoperative day. H&H came back at 8.9 and 27.4. By the 3rd postoperative day, the patient was ambulating without difficulty and tolerating a regular diet. She was discharged home with the routine discharge instructions and the prescriptions for the medications as listed as above. She will follow up in the office in 2 weeks' time for a postoperative check but as always she has been instructed to call with any questions, problems or difficulties.
== END 2017-04-11 13:10 | disposition home or self-care (01) | DRG 766 ==
LOC: C.LD 05:37 → EDSTATUS 07:30 → C.OBG 14:22
PROVIDERS: ADMIT Obstetrics & Gynecology; ATTEND Obstetrics & Gynecology
PROC: 10D00Z1 Extraction of Products of Conception, Low, Open Approach (ICD-10-PCS; principal; 2017-04-08 07:30)
DX: O34.211 Maternal care for low transverse scar from previous cesarean delivery (principal); O99.89 Other specified diseases and conditions complicating pregnancy, childbirth and the puerperium; N73.6 Female pelvic peritoneal adhesions (postinfective); Z3A.39 39 weeks gestation of pregnancy; Z37.0 Single live birth

== ENCOUNTER → 2017-05-20 | Outpatient (CLI) | payer BC ==
[~2017-05-20] MED LIST changes: +MTR600X PO; +OXYC-57 PO
--- NOTE | 2017-05-20 08:22 | DIAGNOSTIC IMAGING REPORT ---
(CHEST) THORAX WITHOUT CLINICAL HISTORY: R91.1 Solitary pulmonary nodule COMPARISON STUDY: 10/24/2015 , 10/12/2014 CT DOSE: 188.77 mGy.cm TECHNIQUE: CT of the thorax was performed from the thoracic inlet to the lung bases. Images are reviewed in the axial, sagittal, and coronal planes. IV contrast was not administered for this examination. A dose lowering technique was utilized adhering to the principles of ALARA. FINDINGS: Thyroid: Imaged portions of the thyroid gland are normal in appearance. Thoracic aorta: The thoracic aorta is normal in course and caliber, noting standard 3 vessel arch anatomy. Heart: The heart is normal in size and configuration, without pericardial effusion. Lungs and pleural spaces: There is no focal pulmonary consolidation. There are no pleural effusions. There is a stable 3 mm right middle lobe perifissural nodule of doubtful clinical significance. There is a stable 4 mm solid left lower lobe pulmonary nodule as visualized in image #[id number]. There is a stable solid 3 mm left upper lobe pulmonary nodule as visualized in image #[id number]. Mediastinum: There is no mediastinal lymphadenopathy. Blanca: Clear. Axilla: Clear. Upper abdomen: Partially visualized upper abdominal viscera is within normal limits. Skeletal structures: There are no lytic or blastic osseous lesions. IMPRESSION: 1. No acute intrathoracic findings 2. Stable solid subcentimeter pulmonary nodules. Given the age of the patient and the 2+ years of stability, no further follow-up is indicated. Electronically signed by: Jack Kumari M.D. 05/20/2017 8:20 AM Dictated Date/Time: 05/20/2017 8:13 AM
== END | disposition home or self-care (01) ==
LOC: C.CTS 08:02
PROVIDERS: ATTEND Internal Medicine Pulmonary Disease
DX: R91.8 Other nonspecific abnormal finding of lung field (principal)

== ENCOUNTER 2021-08-22 06:54 | Inpatient (IN) ==
--- NOTE | 2021-08-14 16:48 | Anesthesiology Consultation ---
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 Wears mask at work and in public. 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 No known Covid infection in the past 90 days. Patient is fully vaccinated for Covid. No known Covid positive exposures or Covid related symptoms. Preop Covid testing scheduled 08/20/21= will await results Seen by Medicine 04/21/21= seen regarding determining time of delivery. F ourth for patient. 2017 operative reports reviewed, which described the lower uterine segment at "thin with transparency" but does not describe a uterine defect. Discussed the integrity of the lower uterine segment and the potential for uterine window or uterine rupture with this . From the documents available, it does not seem that she is at a particularly high risk for uterine rupture aside from the inherent risk posed by fourth .Recommend incorporating a measurement of anterior L US segment thickness of 36-week scan. If <2 mm, would advise delivery earlier than 39 weeks. If >3.65 mm, this would provide additional reassurance that the risk of uterine rupture is low and delivery at 39 weeks is reasonable. Measurements in between do not help either wayrecommend discussion regarding any factors that going to timing of delivery, only some which are medical, others including social and physiological factors. Usual surveillance for maternal status, she is at increased risk of preeclampsia and other maternal morbidities) and wellbeing is appropriate, including late NSTs Patient seen by cardiology 03/19/2021 = patient presents for palpitations. Usually occurs during pregnancies. Diagnosed in 2013 with symptomatic PVCs. Based on symptomshad PVCs primarily when . Palpitations much less than in the past. Will order 24-hour monitor. DOEmay be a lot of reasons for which this could include heats, , masking. Will get ECHO. Will review patient's testing but follow up appt not needed. History Surgery Operation Date: 08/22/21 10:10 Proposed Procedures p Section in LD - Alba Omalley MD, FACOG Height/Weight Height: 5 ft 1 in Weight: 76.204 kg Allergies Allergy/AdvReac Type Severity Reaction Status Date / Time Sulfa (Sulfonamide Allergy Intermediate SWELLING Verified 08/14/21 15:03 Antibiotics) Medications Home Medications Medication Instructions Recorded Confirmed Last Taken ondansetron HCl 4 mg tablet 4 mg PO Q8H PRN #10 tab 02/28/21 08/14/21 Unknown (Zofran) nutritional supplement-fiber 1 ea PO QAM 03/19/21 08/14/21 Unknown [Juice Plus] prenat.vits,elliott,rrt-qpex-dpxgh 1 tab PO QAM 03/19/21 08/14/21 Unknown aspirin 81 mg tablet,delayed 81 mg PO QAM 08/14/21 08/14/21 Unknown release Past Medical History Medical History Coccygeal pain, acute Hemorrhoids Palpitations HX PVC'S-HAS OCCURED DURING EACH PREGANCY Past Family History Family History Grandfather (Paternal) Lung disease Grandmother (Paternal) Breast cancer Lung disease nodules Mother Thyroid disease Father Dyslipidemia Denies family history of Colon cancer Ovarian cancer Prostate cancer Myocardial infarction Past Surgical History Surgical History History of appendectomy History of delivery X 3 History of ovarian cystectomy Social History Smoking Status: Never smoker Do You Dip or Chew Tobacco: No Hx Alcohol Use: Yes Alcohol type: wine alcohol intake frequency: holidays/special occasions only Hx Substance Use: No Testing Electrocardiogram Date: 03/19/21 SR at 66bpm. Normal EKG per confirming provider Echocardiogram Date: 04/01/21 EF: 60-65% LV Function: normal RWMA: + none Other Findings: no diastolic dysfunction Valvular Disease: + no significant valvular disease Mildly dilated inferior vena cava. Other Testing Holter monitor 03/19/21= Rhythm is sinus rhythm. Average heart rate is 70 bpm. Minimal HR 50 bpm. Max HR 120 bpm. No significant pauses or AV block noted. Isolated APD's and couplets noted. No complex atrial arrhythmia. Isolated VPD's noted. No complex ventricular arrhythmia.
--- NOTE | 2021-08-21 22:08 | History & Physical Report ---
Date of Service August 21, 2021 Assessment & Plan (1) Previous delivery affecting : Plan: IUP at 38 weeks for repeat C/S being performed at earlier than 38 weeks because of prior uterine window at last C?S done at 39 weeks. She is also requesting bi lateral tubal ligation because of unwanted fertility and multiparity. The procedures and their risks were reviewed with the patient at length and all of her questions were answered to her satisfaction. History of Present Illness Primary Care Provider: Carmine Carlson MD Patient is a 35 yo white female EDC 09/05/21 who presents for repeat C/S at 38 weeks. Her first section was done for central placenta previa followed by repeat sections with her last 2 pregnancies. At her last section , the lower uterine segment had a transparent asymptomatic window. This section was performed at 39 weeks. This section is being done at 38 weeks because of the concern that uterine rupture could occur if continued through 39 weeks. uterine thickness measured at 34 weeks appeared to be adequate. Prior surgeries were also complicated by pelvic adhesions particularly in the posterior cul-de-sac. She would like to proceed with bilateral tubal ligation if this is possible. The was otherwise complicated by ahistory of stage 4 endometriosis and advanced maternal age. Allergies Allergy/AdvReac Type Severity Reaction Status Date / Time Sulfa (Sulfonamide Allergy Intermediate SWELLING Verified 08/21/21 14:50 Antibiotics) Home Medications Medication Instructions Recorded Confirmed Type ondansetron HCl 4 mg tablet 4 mg PO Q8H PRN #10 tab 02/28/21 08/21/21 Rx (Zofran) nutritional supplement-fiber 1 ea PO QAM 03/19/21 08/21/21 History [Juice Plus] prenat.vits,elliott,oik-gcsi-dppmw 1 tab PO QAM 03/19/21 08/21/21 History aspirin 81 mg tablet,delayed 81 mg PO QAM 08/14/21 08/21/21 History release Patient History Medical History Coccygeal pain, acute Hemorrhoids Palpitations HX PVC'S-HAS OCCURED DURING EACH PREGANCY Surgical History History of appendectomy History of delivery X 3 History of ovarian cystectomy Family History Grandfather (Paternal) Lung disease Grandmother (Paternal) Breast cancer Lung disease nodules Mother Thyroid disease Father Dyslipidemia Denies family history of Colon cancer Ovarian cancer Prostate cancer Myocardial infarction Social History (Updated 08/14/21 @ 15:23 by Joanna Mehta, DAREK) Smoking Status: Never smoker Second Hand Exposure: Yes (FATHER SMOKED); Hx Alcohol Use: Yes Alcohol type: wine Hx Substance Use: No Preferred Language: Mauritanian Communication Ability: Effective Hearing Ability: Normal Superintendent Meters Required: No Beliefs That Will Affect Care: None marital status: marital status details: Mateo Casarez (39) [phone] Current Living Situation: Spouse and Family Current Living Situation Comment: Lives at home with SPOUSE, 3 KIDS and 1 dog current occupational status: employed current occupation: [employer] Feels Safe at Home: Yes Childhood Exposure to Second-Hand Smoke: Yes Dental Care, Regularly: Yes Physical Activity Frequency: 5-6 Times per Week Seatbelt Use: always Assistive Devices: Contacts and Glasses Review of Systems as per HPI Physical Exam Constitutional: WD/WN, vitals as above Respiratory: normal respiratory effort, lungs clear to auscultation Cardiovascular: RRR, no murmur, no edema Psychiatric: A+Ox3, euthymic affect Genitourinary: OB Exam Abdomen: + fundal height (37), + vertex and + irregular contractions OB Exam Monitor Tracing: + external FHT monitor used, + external uterine monitor used, + category I and + normal FHT variability Coding Level of Care Code None Diagnoses Previous delivery affecting O34.219
[2021-08-22] MEDS ORDERED: LACTATED RINGER'S 1,000 ML IV SCH ×2 (07:30→12:00)
[2021-08-22] MEDS ORDERED: CITRIC ACID/SODIUM CITRATE 15 ML UDC PO SCH (07:30)
[2021-08-22] MEDS ORDERED: ceFAZolin 2000MG 2,000 MG/15 ML SYR IV SCH (08:00)
[2021-08-22] MEDS ORDERED: fentaNYL citrate 100 MCG/2 ML VIAL ONE (08:24)
[2021-08-22] MEDS ORDERED: MoRPHine SULFATE PF 1 MG/ML 10 ML AMP/VIAL ONE (08:24)
[2021-08-22 08:54] LABS: Basophils # (auto) 0.02 K/uL (0-0.2); Basophils % (auto) 0.2 %; Eosinophils # (auto) 0.05 K/uL (0-0.5); Eosinophils % (auto) 0.5 %; Hematocrit (blood only) 34.1 % (37-47); Hemoglobin 11.1 g/dL (12.0-16.0); Immature Granulocytes # (auto) 0.27 K/uL (0.00-0.02); Immature Granulocytes % (auto) 2.6 %; Lymphocytes # (auto) 1.87 K/uL (1.2-3.4); Lymphocytes % (auto) 18.3 %; Mean Corpuscular Hemoglobin 28.6 pg (25-34); Mean Corpuscular Volume 87.9 fL (80-100); Monocytes # (auto) 0.78 K/uL (0.11-0.59); Monocytes % (auto) 7.6 %; Neutrophils # (auto) 7.22 K/uL (1.4-6.5); Neutrophils % (auto) 70.8 %; Platelet Count 134 K/uL (130-400); RDW Coefficient of Variation 15.1 % (11.5-14.5); RDW Standard Deviation 48.4 fL (36.4-46.3); Red Blood Count 3.88 M/uL (4.2-5.4); White Blood Count 10.21 K/uL (4.8-10.8)
[2021-08-22 09:17] LABS: Mean Corpuscular Hgb Conc 32.6 g/dL (32-36)
--- NOTE | 2021-08-22 09:25 | History & Physical Bridge Note ---
Date of Service August 22, 2021 History & Physical Bridge Note I have examined the patient, reviewed the History & Physical and in the interval since the performance of the History & Physical I have noted the following changes of clinical significance: no changes noted
[2021-08-22] MEDS ORDERED: ONDANSETRON INJ 2 MG/ML 2 ML VIAL IV PRN ×2 (10:31→11:57)
[2021-08-22] MEDS ORDERED: NALBUPHINE HCL INJ 10 MG/ML AMP IV PRN (10:31)
[2021-08-22] MEDS ORDERED: ePHEDrine sulfate 50 MG/ML AMP IV PRN (10:31)
[2021-08-22] MEDS ORDERED: diphenhydrAMINE 50 MG/ML VIAL IV PRN (10:31)
[2021-08-22] MEDS ORDERED: MoRPHine SULFATE PF 1 MG/ML 10 ML AMP/VIAL INT SPINAL ONE (10:31)
[2021-08-22] MEDS ORDERED: MoRPHine SULFATE 2 MG/ML CARP IV PRN (10:31)
[2021-08-22] MEDS ORDERED: NALOXONE HCL 1 MG in SODIUM CHLORIDE 0.9% 1000ML 1,000 ML IV PRN (10:31)
[2021-08-22] MEDS ORDERED: NALOXONE HCL 0.4 MG/1 ML VIAL/CARP IV PRN (10:31)
[2021-08-22] MEDS ORDERED: NALOXONE HCL 0.08 MG in SYRINGE 1.8 ML IV PRN (10:31)
[2021-08-22] MEDS ORDERED: PROMETHAZINE HCL 6.25 MG in SODIUM CHLORIDE 0.9% 50 ML IV PRN (10:31)
[2021-08-22] MEDS ORDERED: LACTATED RINGER'S 500 ML IV PRN (10:31)
[2021-08-22] MEDS ORDERED: PHENYLEPHRINE 100MCG/ML 5ML SYR ONE (10:41)
[2021-08-22] MEDS ORDERED: ONDANSETRON INJ 2 MG/ML 2 ML VIAL ONE (10:41)
[2021-08-22] MEDS ORDERED: OXYTOCIN 10 UNITS/ML 10ML VIAL ONE (10:41)
[2021-08-22] MEDS ORDERED: SODIUM CHLORIDE 0.9% 1000ML 1,000 ML IV SCH (10:45)
[2021-08-22] MEDS ORDERED: DC INTRASPINAL MORPHINE SCH (10:45)
[2021-08-22] MEDS ORDERED: NO NARCOTICS OR SEDATIVES SCH (10:45)
--- NOTE | 2021-08-22 11:37 | Post Operative Brief Note ---
PG Immediate Post Op with CF Date of Surgery August 22, 2021 Pre & Post Diagnosis Operation Date: 08/22/21 08:50 Pre-Op Diagnosis: Prior section x3. Unwanted fertility. Post-Op Diagnosis: Same as above. I identified the patient and participated in the time-out.: Yes Procedure Operation Date: 08/22/21 08:50 Actual Procedures p Section in LD delivery of live female child in OR 3(Bilateral) - Alba Omalley MD, FACOG bilateral tubal ligation Surgeon Alba Omalley MD, FACOG Acute Specialist uziel Samuel DO Estimated Blood Loss 450 Findings Consistent with Post-Op Diagnosis Specimens Specimen Description: A: placenta B: cord blood C: partial of right and left fallopian tubes Drains Mcgregor Catheter (placed after spinal,drainging clear yellow urine) Complications none Disposition Accompanied Patient To Recovery: Yes
[2021-08-22] MEDS ORDERED: KETOROLAC 30 MG/ML VIAL IV PRN (11:57)
[2021-08-22] MEDS ORDERED: SENNA 8.6 MG TAB PO PRN (11:57)
[2021-08-22] MEDS ORDERED: HYDROCORTISONE ACETATE 25 MG SUPP PR PRN (11:57)
[2021-08-22] MEDS ORDERED: DIPHTHERIA/TETANUS/PERTUSSIS 0.5 ML SYR/VIAL IM ONE (11:57)
[2021-08-22] MEDS ORDERED: SUPERCREAM 0.870% 15 GM JAR EXT PRN (11:57)
[2021-08-22] MEDS ORDERED: BENZOCAINE 20% AER SPR 82.5 GM CAN EXT PRN (11:57)
--- NOTE | 2021-08-22 12:10 | Operative Report ---
PG Post Operative Report Pre & Post Diagnosis Operation Date: 08/22/21 08:50 Pre-Op Diagnosis: Prior section x3. Unwanted fertility. Post-Op Diagnosis: Same as above. I identified the patient and participated in the time-out.: Yes Procedure Operation Date: 08/22/21 08:50 Actual Procedures p Section in LD delivery of live female child in OR 3(Bilateral) - Alba Omalley MD, FACOG bilateral modified teddy tubal ligation Surgeon Alba Omalley MD, FACOG Head Mixer Jayla Samuel DO Estimated Blood Loss 450 Findings Consistent with Post-Op Diagnosis The uterus was gravid and consistent with a term and size the lower uterine segment appeared to be thin but intact. Bilateral ovaries are also normal as were the fallopian tubes. The colon was densely adherent to the posterior wall of the uterus in the cul-de-sac. There were also filmy adhesions around the left fallopian tube and ovary. Specimens placenta Drains Mcgregor catheter to straight drainage. clear urine at end of the case. Anesthesia Type Spinal Complications none Disposition Accompanied Patient To Recovery: Yes Indications Patient is a 35-year-old 4 para 3-0-0-3 white female EDC of 09/05/2021 presents at 38 weeks for repeat section. She has had 3 prior sections, at her last section the lower uterine wall was a very thin at 39 weeks. Therefore we are performing the repeat section this time at 38 weeks. She is also requesting permanent sterilization for unwanted fertility and multiparity. Description of Procedure After the patient received adequate subarachnoid block she was prepped and draped in usual sterile fashion.A low transverse skin incision was made with a skin area scalpel and carried to the fascia with the same scalpel. The fascial incision was then extended with Nava scissors and the underlying rectus muscle was bluntly sharply dissected off of the overlying fascia. The anchors were then grasped with Estiven clamps and the underlying rectus muscles bluntly sharply dissected off of the overlying fascia. The rectus muscles were adherent on the midline and these were entered with a hemostat creating a plane to separate them bluntly. The underlying peritoneum was then entered bluntly. The bladder blade was then placed in the abdominal cavity and the lower uterine segment was noted to be thin but intact. The bladder was then taken down off the anterior surface of the uterus and placed behind the bladder blade. The lower uterine segment was entered with a scalpel and extended transversely. The amniotic fluid was clear. The infant was delivered with assistance of the vacuum and moderate fundal pressure to the uterine incision. The rest of the delivered easily. She was vigorous upon delivery. The cord was then clamped and cut and the was handed off to Dr. Froylan Anne who was in attendance as passenger service representative. The placenta was then expressed intact with a three-vessel cord. The uterine cavity was explored and found to be free of any placental tissue or membranes. The uterus was exteriorized and covered with a clean lap sponge. The lower uterine segment was closed in a running locking fashion with 0 Monocryl in a single layer. Attention was then turned to the tubal ligation. The left fallopian tube was identified followed to its fimbriated end. Some filmy adhesions adhering the tube to the ovary were lysed with the Bovie. The midportion of the tube was grasped with a Riva clamp. A knuckle of tube was developed with a tie of 3 plain catgut followed by suture ligature of the same. The knuckle of tube was then removed with Metzenbaum scissors and the remaining edges were cauterized with the Bovie. The right fallopian tube was then identified and followed to its fimbriated end it was grasped in the midportion with a Riva clamp. A knuckle of tube was developed with a tie of 3-0 plain catgut followed by suture ligature of the same the necklace tube was then removed. The remaining ends of the tube were cauterized with the Bovie. After suctioning the posterior cul-de-sac for small amount of fluid, the uterus was gently placed back inside the uterine cavity. The gutters were explored bluntly free of any clot or fluid. The tubal ligation sites were then visualized and sent and continued to have excellent hemostasis. After irrigating the anterior cul-de-sac the rectus muscles were brought together in the midline with a individual stitches of 0 Monocryl. Fascia was then closed in a running fashion with 0 Vicryl. The skin edges edges were reapproximated with a subcuticular stitch of 4-0 Vicryl. Mother and were doing well after delivery. I attest to the content of the Intraoperative Record and any orders documented therein. Any exceptions are noted below. OB Procedure Charges 85084 [id number] Add on Tubal for C/S
--- NOTE | 2021-08-22 12:54 | Anesthesiology Progress Note ---
Date of Service August 22, 2021 Anesthesia Post Procedure Vital Signs Vital Signs: Temp Pulse Resp BP Pulse Ox 08/22/21 12:52 65 92/50 L 08/22/21 12:51 67 98 08/22/21 12:46 72 98 08/22/21 12:42 67 97/55 L 08/22/21 12:41 70 98 08/22/21 12:36 74 98 08/22/21 12:35 20 08/22/21 12:32 67 102/58 L 08/22/21 12:31 69 98 08/22/21 12:26 64 98 08/22/21 12:25 20 08/22/21 12:22 60 92/54 L 08/22/21 12:21 71 99 08/22/21 12:16 76 98 08/22/21 12:15 20 08/22/21 12:12 73 128/51 L 08/22/21 12:11 72 99 08/22/21 12:06 81 98 08/22/21 12:05 20 08/22/21 12:01 77 99 08/22/21 11:56 65 98 08/22/21 11:55 20 08/22/21 11:51 72 97 08/22/21 11:50 70 93 08/22/21 11:46 67 97 08/22/21 11:45 36.8 C 66 20 104/53 L 08/22/21 07:11 97 H 106/69 08/22/21 07:09 36.7 C 20 Transfer of Care Handoff Completed per policy Notes Mental Status: alert / awake / arousable and participated in evaluation Patient Amnestic to Procedure: No Nausea / Vomiting: adequately controlled Pain: adequately controlled Airway Patency, RR, SpO2: stable & adequate BP & HR: stable & adequate Hydration State: stable & adequate Neuraxial Anesthesia: was administered and sensory block is resolving Anesthetic Complications: no major complications apparent and Pt Satisfied with anesthetic care
[2021-08-22] MEDS: KETOROLAC 30 MG/ML VIAL IV PRN ×2 (15:45→21:26)
[2021-08-22] MEDS: OXYTOCIN 20 UNITS in LACTATED RINGER'S 1,000 ML IV SCH (16:27)
[2021-08-22] MEDS ORDERED: LACTATED RINGER'S 500 ML IV ONE (16:54)
--- NOTE | 2021-08-22 16:54 | Obstetrical Progress Note ---
Date of Service August 22, 2021 Assessment & Plan Admission and Anticipated Discharge Date Admission Date: August 22, 2021 Subjective Called to room by RN to evaluate patient d/t red in zaragoza tubing. Patient is awake, sitting up, talking. Zaragoza has just been emptied - per RN, the prior 2 zaragoza emptys during her shift were clear with adequate urine output. Now, in preparation to transfer her to unit, she was noted to have a bit of pink-tinged urine in the tubing. No obvious red blood, however RN reported that they saw one drop of red blood move down the tubing to color the urine. Urine in bag, small amount, appears either blood-tinged or concentrated. Will plan to give patient 500cc bolus, will plan to continue to reevaluate urine in the zaragoza bag as she continues to recover. Results & Data ([facility]) Vital Signs (Past 12 Hours) Vital Signs Temp Pulse Resp BP Pulse Ox 08/22/21 16:42 69 100 08/22/21 16:37 73 100 08/22/21 16:31 74 98 08/22/21 16:26 68 99 08/22/21 16:24 64 91/54 L 08/22/21 16:21 73 99 08/22/21 16:16 71 99 08/22/21 16:11 72 98 08/22/21 16:06 72 99 08/22/21 16:01 66 99 08/22/21 15:56 70 98 08/22/21 15:55 69 96/66 L 08/22/21 15:51 71 100 08/22/21 15:46 73 100 08/22/21 15:41 71 100 08/22/21 15:36 68 100 08/22/21 15:31 72 100 08/22/21 15:26 72 100 08/22/21 15:24 69 91/54 L 08/22/21 15:21 71 100 08/22/21 15:16 71 99 08/22/21 15:11 73 100 08/22/21 15:06 70 99 08/22/21 15:01 75 90/53 L 100 08/22/21 14:56 71 99 08/22/21 14:51 64 100 08/22/21 14:46 65 100 08/22/21 14:41 71 100 08/22/21 14:36 65 100 08/22/21 14:33 73 87/54 L 08/22/21 14:31 70 100 08/22/21 14:28 84 92 08/22/21 14:26 75 100 08/22/21 14:25 83 86/52 L 08/22/21 14:21 73 100 08/22/21 14:16 67 100 08/22/21 14:11 70 99 08/22/21 14:06 75 99 08/22/21 14:01 75 99 08/22/21 13:56 70 99 08/22/21 13:53 67 90/51 L 08/22/21 13:51 91 H 94 08/22/21 13:46 66 99 08/22/21 13:45 36.6 C 20 08/22/21 13:42 63 96/54 L 08/22/21 13:41 66 99 08/22/21 13:36 68 99 08/22/21 13:32 69 92/54 L 08/22/21 13:31 69 99 08/22/21 13:26 72 98 08/22/21 13:22 68 95/56 L 08/22/21 13:21 69 97 08/22/21 13:16 68 98 08/22/21 13:15 20 08/22/21 13:12 66 94/52 L 08/22/21 13:11 67 98 08/22/21 13:06 67 98 08/22/21 13:02 70 91/50 L 08/22/21 13:01 68 98 08/22/21 12:56 81 97 08/22/21 12:52 65 92/50 L 08/22/21 12:51 67 98 08/22/21 12:46 72 98 08/22/21 12:45 20 08/22/21 12:42 67 97/55 L 08/22/21 12:41 70 98 08/22/21 12:36 74 98 08/22/21 12:35 20 08/22/21 12:32 67 102/58 L 08/22/21 12:31 69 98 08/22/21 12:26 64 98 08/22/21 12:25 20 08/22/21 12:22 60 92/54 L 08/22/21 12:21 71 99 08/22/21 12:16 76 98 08/22/21 12:15 20 08/22/21 12:12 73 128/51 L 08/22/21 12:11 72 99 08/22/21 12:06 81 98 08/22/21 12:05 20 08/22/21 12:01 77 99 08/22/21 11:56 65 98 08/22/21 11:55 20 08/22/21 11:51 72 97 08/22/21 11:50 70 93 08/22/21 11:46 67 97 08/22/21 11:45 36.8 C 66 20 104/53 L 08/22/21 07:11 97 H 106/69 08/22/21 07:09 36.7 C 20 PG Care Time/CCT Total # of Minutes Spent Total Time Spent with Patient: Total time spent is greater than 50% in coordination of care (as documented) at patient's floor/unit and/or counseling patient: Coding Level of Care Code None
[2021-08-22] MEDS: SIMETHICONE 80 MG CHEW PO SCH ×2 (18:12→21:26)
[2021-08-22] MEDS: DOCUSATE SODIUM 100 MG CAP PO SCH (21:26)
[2021-08-23] MEDS: OXYTOCIN 20 UNITS in LACTATED RINGER'S 1,000 ML IV SCH (00:24)
[2021-08-23] MEDS ORDERED: diphenhydrAMINE 50 MG/ML VIAL IV PRN (04:31)
[2021-08-23] MEDS ORDERED: MEPERIDINE HCL 50 MG/ML CARP IV PRN (04:31)
[2021-08-23] MEDS ORDERED: diphenhydrAMINE Capsule 25 MG CAP PO PRN (04:31)
[2021-08-23] MEDS ORDERED: PROMETHAZINE HCL 25 MG in SODIUM CHLORIDE 0.9% 50 ML IV PRN (04:31)
[2021-08-23 06:52] LABS: Basophils # (auto) 0.02 K/uL (0-0.2); Basophils % (auto) 0.2 %; Eosinophils # (auto) 0.09 K/uL (0-0.5); Hematocrit (blood only) 30.4 % (37-47); Immature Granulocytes % (auto) 1.1 %; Lymphocytes # (auto) 1.47 K/uL (1.2-3.4); Lymphocytes % (auto) 16.4 %; Mean Corpuscular Hemoglobin 28.6 pg (25-34); Mean Corpuscular Hgb Conc 32.9 g/dL (32-36); Mean Corpuscular Volume 86.9 fL (80-100); Mean Platelet Volume 11.7 fL (7.4-10.4); Monocytes # (auto) 0.77 K/uL (0.11-0.59); Monocytes % (auto) 8.6 %; Neutrophils # (auto) 6.52 K/uL (1.4-6.5); Neutrophils % (auto) 72.7 %; Platelet Count 107 K/uL (130-400); RDW Coefficient of Variation 15.1 % (11.5-14.5); RDW Standard Deviation 47.6 fL (36.4-46.3); White Blood Count 8.97 K/uL (4.8-10.8)
--- NOTE | 2021-08-23 07:44 | Obstetrical Progress Note ---
Date of Service <Abeba Albright MD - Last Filed: 08/23/21 07:44> August 23, 2021 Assessment & Plan <Abeba Albright MD - Last Filed: 08/23/21 07:44> (1) Encounter for care and examination after delivery: POD 1: stable, routine postoperative management * patient voiding, ambulating without difficulty * pain well controlled on analgesia * tolerating regular diet * * reassess d/c readiness tomorrow <Anneliese Samuel DO - Last Filed: 08/23/21 08:28> (1) Encounter for care and examination after delivery: Subjective <Abeba Albright MD - Last Filed: 08/23/21 07:44> Post Hailey is a 35-year-old G4, P3 who is now POD 1 following plus BTL at 38.0 WGA. She reports feeling well overall this morning. 4/10 pain well managed on analgesics. Voiding +. Tolerating meals overnight and able to ambulate without assistance. Lochia is much improved this morning. Currently . Review of Systems Denies fever, chills, sweats Denies shortness of breath, difficulty breathing, chest pain, palpitations, chest pressure. Denies breast pain. Denies dysuria. Denies headache or changes in vision. Physical Exam <Abeba Albright MD - Last Filed: 08/23/21 07:44> General: Alert, oriented. No acute distress. Cardiac: Regular rate and rhythm, no murmurs/rubs/gallops. Respiratory: Clear to auscultation bilaterally a/p, no wheezes/rales/rhonchi. No increased work of breathing. Symmetrical chest rise. No respiratory distress. Abdomen: Soft, nontender, nondistended. Bowel sounds present. Uterus: Uterine fundus firm, palpable at the umbilicus. Surgical scar clean and healing well. Lower Extremities: No lower extremity edema or swelling. No deep calf pain. Tavares's negative bilaterally. Results & Data ([facility]) <Abeba Albright MD - Last Filed: 08/23/21 07:44> Vital Signs (Past 12 Hours) Vital Signs Temp Pulse Resp BP Pulse Ox 08/23/21 05:59 36.8 C 67 16 94/60 L 96 08/23/21 04:30 16 98 08/23/21 03:30 16 96 08/23/21 02:30 16 97 08/23/21 01:30 16 98 08/23/21 01:15 36.5 C 67 16 92/56 L 97 08/22/21 23:30 16 98 08/22/21 22:30 14 99 08/22/21 21:30 36.6 C 71 16 96/59 L 99 08/22/21 20:30 16 98 <Anneliese Samuel DO - Last Filed: 08/23/21 08:28> Co-Signing Physician Notes Resident Physician Supervision Note: I interviewed and examined the patient. Discussed with Dr. Albright and agree with findings and plan as documented in the note. Any exceptions or clarifications are listed here: POD#1 doing well, continue routine postop care. Documented By: Anneliese Samuel DO Resident Activity Tracking <Abeba Albright MD - Last Filed: 08/23/21 07:44> Resident Involvement: Resident Care Provided Care Provided: OB Delivery
[2021-08-23] MEDS: MAGNESIUM HYDROXIDE SUSP 30 ML UDC PO PRN (08:58)
[2021-08-23] MEDS: PRENATAL VITAMIN 1 TAB PO SCH (09:00)
[2021-08-23] MEDS: DOCUSATE SODIUM 100 MG CAP PO SCH ×2 (09:00→21:05)
[2021-08-23] MEDS: oxyCODONE/ACETAMINOPHEN 5mg/325mg TAB PO PRN ×4 (09:00→21:43)
[2021-08-23] MEDS: FERROUS SULFATE 325 MG TAB PO SCH (09:01)
[2021-08-23] MEDS: SIMETHICONE 80 MG CHEW PO SCH ×4 (09:01→21:05)
[2021-08-23] MEDS: IBUPROFEN 600 MG TAB PO PRN ×3 (12:25→21:43)
[2021-08-23] MEDS ORDERED: bisacodyL 5 MG TABEC PO SCH (20:00)
[2021-08-24] MEDS: oxyCODONE/ACETAMINOPHEN 5mg/325mg TAB PO PRN ×6 (01:56→21:52)
[2021-08-24] MEDS: IBUPROFEN 600 MG TAB PO PRN ×6 (01:56→21:52)
[2021-08-24 06:37] LABS: Hematocrit (blood only) 32.7 % (37-47); Hemoglobin 10.6 g/dL (12.0-16.0)
--- NOTE | 2021-08-24 08:48 | Obstetrical Progress Note ---
Date of Service August 24, 2021 Assessment & Plan (1) Encounter for care and examination after delivery: satisfactory post -op progress baby will need to stay for bili lights treatment scripts sent to pharmacy for percocet and motrin plan discharge to tomorrow Subjective Ambulation: ambulating normally Voiding: no voiding problems Passing Gas:: Yes Diet Tolerance:: regular diet Lochia:: Small Feeding Type:: breast feeding pain well controlled wiht oral pain meds Review of Systems All systems reviewed & are unremarkable except as noted in HPI & below Physical Exam Constitutional WD/WN, vitals as above Gastrointestinal (Abdomen) incision intact and dry. no cellulitis Psychiatric A+Ox3, euthymic affect Genitourinary OB Exam Abdomen: + fundal height (2 below U) Fundus: + firm Results & Data ([facility]) Vital Signs (Past 12 Hours) Vital Signs Temp Pulse Resp BP Pulse Ox 08/24/21 00:20 98.1 F 78 16 93/55 L 95 08/23/21 20:50 98.2 F 77 16 100/61 95
[2021-08-24] MEDS: FERROUS SULFATE 325 MG TAB PO SCH (09:45)
[2021-08-24] MEDS: SIMETHICONE 80 MG CHEW PO SCH ×4 (09:45→20:57)
[2021-08-24] MEDS: PRENATAL VITAMIN 1 TAB PO SCH (09:45)
[2021-08-24] MEDS: MAGNESIUM HYDROXIDE SUSP 30 ML UDC PO PRN (09:45)
[2021-08-24] MEDS: DOCUSATE SODIUM 100 MG CAP PO SCH ×2 (09:45→20:49)
[2021-08-24] MEDS ORDERED: bisacodyL 10 MG SUPP PR PRN (11:57)
--- NOTE | 2021-08-25 06:39 | Obstetrical Progress Note ---
Date of Service <Charli Mackay DO - Last Filed: 08/25/21 07:24> August 25, 2021 Assessment & Plan <Charli Mackay DO - Last Filed: 08/25/21 07:24> (1) Encounter for care and examination after delivery: 35 yo post op day 3 from , doing well. -Continue routine post care. - vital signs reviewed and WNL. (Tmax 36.9) -Blood type O-, GBS -, Rubella Immune -Encourage ambulation, control pain with Motrin, tylenol PRN. -encourage breast feeding. Breast pump already has. -hemoglobin 10.6 -D/C home. <Alba Omalley MD, FACOG - Last Filed: 08/25/21 07:44> (1) Encounter for care and examination after delivery: Subjective <Charli Mackay DO - Last Filed: 08/25/21 07:24> Ambulation: ambulating normally Voiding: no voiding problems Passing Gas:: Yes Diet Tolerance:: regular diet Lochia:: Small Feeding Type:: breast feeding Current Pain Level(1-10): 0 Review of Systems Denies fever, chills, sweats Denies shortness of breath, difficulty breathing, chest pain, palpitations, chest pressure. Denies breast pain. Denies dysuria. Denies headache or changes in vision Physical Exam <Charli Mackay DO - Last Filed: 08/25/21 07:24> General: Alert, oriented. No acute distress. Cardiac: Regular rate and rhythm, no murmurs/rubs/gallops. Respiratory: Clear to auscultation bilaterally a/p, no wheezes/rales/rhonchi. No increased work of breathing. Symmetrical chest rise. No respiratory distress. Abdomen: Soft, nontender, nondistended. Bowel sounds present. Uterus: Uterine fundus firm, palpable 2 cm below umbilicus. Surgical scar clean and healing well. Lower Extremities: No lower extremity edema or swelling. No deep calf pain. Tavares's negative bilaterally Results & Data ([facility]) <Charli Mackay DO - Last Filed: 08/25/21 07:24> Vital Signs (Past 12 Hours) Vital Signs Temp Pulse Resp BP Pulse Ox 08/24/21 23:20 36.7 C 70 18 99/65 L 97 08/24/21 19:44 36.6 C 68 18 98/63 L 98 <Alba Omalley MD, FACOG - Last Filed: 08/25/21 07:44> Co-Signing Physician Notes Resident Physician Supervision Note: I interviewed and examined the patient. Discussed with Dr. Mackay and agree with findings and plan as documented in the note. Any exceptions or clarifications are listed here: [None] Documented By: Alba Omalley MD, FACOG Resident Activity Tracking <Charli Mackay DO - Last Filed: 08/25/21 07:24> Resident Involvement: Resident Care Provided Care Provided: Adult Hospital Medicine
[2021-08-25] MEDS: oxyCODONE/ACETAMINOPHEN 5mg/325mg TAB PO PRN (08:24)
[2021-08-25] MEDS: PRENATAL VITAMIN 1 TAB PO SCH (08:25)
[2021-08-25] MEDS: FERROUS SULFATE 325 MG TAB PO SCH (08:25)
[2021-08-25] MEDS: DOCUSATE SODIUM 100 MG CAP PO SCH (08:25)
[2021-08-25] MEDS: IBUPROFEN 600 MG TAB PO PRN (08:25)
[2021-08-25] MEDS: SIMETHICONE 80 MG CHEW PO SCH ×2 (08:25→08:41)
--- NOTE | 2021-08-29 10:51 | Discharge Summary (DS) ---
DATE OF ADMISSION: 08/22/2021 DATE OF DISCHARGE: 08/25/2021 PRINCIPAL DIAGNOSES: Intrauterine at 38 weeks, prior section x3, unwanted fertili ty. PRINCIPAL PROCEDURE: Repeat low transverse section and bilateral tubal ligation. HISTORY: The patient is a 35-year-old 4, para 3-0-0-3 white female, who presented at 38 week s for repeat section. She has had 3 prior sections, and at her last secti on, the lower uterine segment was noted to be very thin at 39 weeks. Therefore, her section has been moved up a week. She is also requesting permanent sterilization. The section and bilateral tubal ligation was done without any complications. She had an uncomplicated postop course . She was afebrile throughout her hospital stay. She was eating regular diet on her first postop da y, voiding and ambulating without difficulty. Hemoglobin on admission is 11.1, hematocrit 34.1. Firs t postop day, hemoglobin 10.0, hematocrit 30.4. Second postop day, hemoglobin 10.6, hematocrit 32.7. She was sent home in good condition with prescriptions for Motrin 600 mg p.o. q.6 hours p.r.n. pain and Percocet 1 tablet p.o. q.4 hours p.r.n. pain. She is to call for temperature of 101 degrees or higher, heavy vaginal bleeding, burning with urination, increased redness, drainage or pain from her incision, calf tenderness or any other concerns. She will be seen in the office in 6 weeks for a fol [facility] visit. Job ID: [id number]
== END 2021-08-25 13:40 | disposition home or self-care (01) | DRG 788 ==
LOC: 4S1 06:54 → 4S2 17:31 → EDSTATUS 08-29 09:05
DX: Z30.2 Encounter for sterilization; Z37.0 Single live birth; O34.211 Maternal care for low transverse scar from previous cesarean delivery; Z3A.38 38 weeks gestation of pregnancy; Z87.59 Personal history of other complications of pregnancy, childbirth and the puerperium; Z88.2 Allergy status to sulfonamides